=== PATIENT | male | born 1950 | race African-American/Black ===

== ENCOUNTER 2020-05-20 06:35 | Day surgery (SDC) | payer MEDICARE, OTHER ==
--- NOTE | 2020-05-16 14:33 | Opthalmology H&P ---
Ophthalmology H&P H&P Chief Complaint: decreased vision in left eye HPI Vision Affects Ability to: read, manage personal affairs HPI Narrative Blurry vision Exam Visual Acuity: OD 20/100 OS 20/160 Tension: OD 15 OS 17 Eye Exam: normal OU: external exam, palpebral fissure-width, marginal reflex distance, levator function, corneas, anterior chambers, fundus exam; findings: lens - NS Cat. OU Assessment/Plan Treatment Plan: cataract extraction w/ lens implant Goals of Treatment: improvement of vision, enhance quality of life Attestation Attestation The risks and benefits of the surgery as well as alternative procedures were explained to the patient in detail. Edgard Boston MD May 16, 2020 14:33
--- NOTE | 2020-05-16 14:35 | Pre-Procedure Note/Attestation ---
Pre-Procedure Note/Attestation Complete Prior to Procedure Planned Procedure: left Procedure Narrative: Cataract extraction with IOL implant left eye Indications for Procedure Pre-Operative Diagnosis: Nuclear sclerotic cataract left eye Attestation I attest that I discussed the nature of the procedure; its benefits; risks and complications; and alternatives (and the risks and benefits of such alternatives ), prior to the procedure, with the patient (or the patient's legal high school admissions representative). I attest that, if there was a reasonable possibility of needing a blood transfusion, the patient (or the patient's legal high school admissions representative) was given the [facility] standardized written summary, pursuant to the Vasiliy Janeth Blood Safety Act ([place] Health and Safety Code # 1645, as amended). I attest that I re-evaluated the patient just prior to the surgery and that there has been no change in the patient's H&P, except as documented below: Edgard Boston MD May 16, 2020 14:35
[~2020-05-20] VITALS: Ht 175.3 cm; Wt 59.0 kg
[2020-05-20] VITALS (9 sets, daily range): BP systolic 133–143; BP diastolic 80–91
[~2020-05-20 06:35] MED LIST: ALBUTEROL SULF8.5 G1 INH; CYCLOBENZAPRINE10 MG ORAL; NAPROXEN25 G1 MC; NKM; RANITIDINE HCL150 MG ORAL; asmanex INH
[2020-05-20] MEDS ORDERED: Maxitrol Opth Oint 3.5gm ONE (07:00)
[2020-05-20] MEDS ORDERED: prednisoLONE acetate 1% Opth Susp 1ml ONE (07:00)
[2020-05-20] MEDS ORDERED: Tetracaine 0.5% Opth 4ml Soln LEFT EYE ONE (07:00)
[2020-05-20] MEDS ORDERED: Akten 3.5% 1ml Btl LEFT EYE ONE (07:00)
[2020-05-20] MEDS ORDERED: Proparacaine 0.5% Opth Soln 15ml LEFT EYE ONE (07:00)
[2020-05-20] MEDS ORDERED: Pilocarpine 1% Opth 15ml Soln ONE (07:00)
[2020-05-20] MEDS ORDERED: Diclofenac Sod 0.1% Op Soln LEFT EYE SCH (07:00)
[2020-05-20] MEDS: Tropicamide 1% Opth 15ml Soln LEFT EYE SCH ×3 (07:04→07:25)
[2020-05-20] MEDS: Phenylephrine 10% Opth Soln 5ml LEFT EYE SCH ×3 (07:04→07:25)
[2020-05-20] MEDS: Tobramycin Op Soln 0.3% 5ml LEFT EYE SCH ×3 (07:04→07:25)
[2020-05-20] MEDS: Cyclopentolate 1% Opth Sol 2ml LEFT EYE SCH ×3 (07:04→07:25)
[2020-05-20] MEDS ORDERED: Povidone-Iodine 5% opth solution ONE (07:17)
[2020-05-20] MEDS ORDERED: EPINEPHrine 1mg/1ml Amp ONE (07:17)
[2020-05-20] MEDS ORDERED: BSS 15ml BTL ONE (07:17)
[2020-05-20] MEDS ORDERED: BSS 500ml btl ONE (07:17)
[2020-05-20] MEDS ORDERED: Sodium Hyaluronate 10 mg/ml 0.85ml ONE (07:17)
[2020-05-20] MEDS ORDERED: LR 1000ml 1,000 ML IVLG SCH (08:23)
--- NOTE | 2020-05-20 08:23 | Anethesia Preoperative Eval ---
Anesthesia Pre-op PMH/ROS General Date of Evaluation: May 20, 2020 Time of Evaluation: 08:18 Anesthesiologist: Kathleen ASA Score: ASA 2 Mallampati Score Class I : Soft palate, uvula, fauces, pillars visible Class II: Soft palate, uvula, fauces visible Class III: Soft palate, base of uvula visible Class IV: Only hard plate visible Mallampati Classification: Class II Surgeon: Ludy Diagnosis: L eye cataract Surgical Procedure: Cataract extraction Anesthesia History: none Social History: drug use - h/o Family History: no anesthesia problems Allergies: Coded Allergies: No Known Allergies (Unverified , 07/30/16) Medications: see eMAR Patient NPO?: Yes Past Medical History Cardiovascular: Reports: HTN - Borderline; Denies: CAD, [place], valve dz, arrhythmia, other Pulmonary: Reports: asthma - mild on inhalers; Denies: COPD, HYUN, other Gastrointestinal/Genitourinary: Reports: GERD; Denies: CRI, ESRD, other Neurologic/Psychiatric: Denies: dementia, CVA, depression/anxiety, TIA, other Endocrine: Denies: DM, hypothyroidism, steroids, other HEENT: Reports: cataract (L), cataract (R); Denies: glaucoma, [place] (L), [place] (R), other Hematology/Immune: Denies: anemia, DVT, bleeding disorder, other Musculoskeletal/Integumentary: Reports: OA; Denies: RA, DJD, DDD, edema, other Other: other - malnourished PMH Narrative: as above PSxH Narrative: Splenectomy Anesthesia Pre-op Phys. Exam Physician Exam Last Vital Signs Date Time Temp Pulse Resp B/P (MAP) Pulse Ox O2 Delivery O2 Flow Rate FiO2 05/20/20 07:23 Room Air 05/20/20 07:12 97.5 84 18 133/85 95 Constitutional: NAD Neurologic: CN 2-12 intact Cardiovascular: RRR, no M/R/G Respiratory: CTA Gastrointestinal: S/NT/ND Airway Exam Mallampati Score: Class II MO: limited Neck: stiff ROM: limited Teeth: missing Dentures: no upper, no lower Anesthesia Pre-op A/P Labs see chart Studies Pre-op Studies: EKG - SR Risk Assessment & Plan Assessment: ASA 2 Plan: MAC Status Change Before Surgery: No Pre-Antibiotics Drug: none Jose Wang MD May 20, 2020 08:23
[2020-05-20] MEDS ORDERED: fentaNYL 100 mcg/2 mL IV PRN (08:30)
[2020-05-20] MEDS ORDERED: fentaNYL 100 mcg/2 mL IV ONE (09:00)
[2020-05-20] MEDS ORDERED: LR 1000ml ONE (09:00)
[2020-05-20] MEDS ORDERED: NS Irrig 1000ml ONE (09:00)
[2020-05-20] MEDS ORDERED: Sterile Water Irrig 1000ml IRRIG ONE (09:00)
--- NOTE | 2020-05-20 09:45 | Immediate Post-Op Evaluation ---
Immediate Post-Op Evalulation Immediate Post-Op Evalulation Procedure: L eye cataract extraction with IOL Date of Evaluation: May 20, 2020 Time of Evaluation: 09:44 IV Fluids: 600 Blood Products: none Estimated Blood Loss: none Urinary Output: none Blood Pressure Systolic: 132 Blood Pressure Diastolic: 84 Pulse Rate: 62 Respiratory Rate: 18 O2 Sat by Pulse Oximetry: 99 Temperature (Fahrenheit): 97.8 Pain Score (1-10): 1 Nausea: No Vomiting: No Complications none Patient Status: awake, patent, none Hydration Status: adequate Jose Wang MD May 20, 2020 09:45
--- NOTE | 2020-05-20 09:51 | 48 Hour Post Anesthesia Eval ---
Post Anesthesia Evaluation Procedure: L eye cataract extraction with IOL Date of Evaluation: May 20, 2020 Time of Evaluation: 09:50 Blood Pressure Systolic: 142 0: 77 Pulse Rate: 68 Respiratory Rate: 16 Temperature (Fahrenheit): 97.8 O2 Sat by Pulse Oximetry: 99 Airway: patent Nausea: No Vomiting: No Pain Intensity: 1 Hydration Status: adequate Cardiopulmonary Status: stable Mental Status/LOC: patient returned to baseline Follow-up Care/Observations: n/a Post-Anesthesia Complications: none Follow-up care needed: ready to discharge Jose Wang MD May 20, 2020 09:51
--- NOTE | 2020-05-20 13:14 | Brief Operative Note ---
Immediate Post Operative Note Operative Note Chief Complaint: Blurry vision Pre-op Diagnosis: Nuclear sclerotic cataract left eye Procedure: Cataract extraction with IOL implant left eye Post-op Diagnosis: Pseudophakia OS Findings: consistent w/pre-op dx studies Surgeon: Edgard Boston MD Anesthesiologist: Jose Wang MD Anesthesia: MAC Specimen: none Complications: none Condition: stable Fluids: LR Estimated Blood Loss: none Drains: none Implant(s) used?: Yes - IOL Edgard Boston MD May 20, 2020 13:14
--- NOTE | 2020-05-20 13:18 | Operative Note - PDOC ---
Operative Note Operative Note Date of Operation/Procedure: May 20, 2020 Chief Complaint: Blurry vision Pre-op Diagnosis: Nuclear sclerotic cataract left eye Procedure: Cataract extraction with IOL implant left eye Post-op Diagnosis: Pseudophakia OS Operative Findings: consistent w/pre-op dx studies Surgeon: Edgard Boston MD Anesthesiologist: Jose Wang MD Anesthesia: MAC Specimen: none Complications: none Condition: stable Fluids: LR Estimated Blood Loss: none Drains: none Implant(s) used?: Yes - IOL-OS Indications for Procedure Nuclear sclerotic cataract left eye Description of Procedure This patient has been complaining visually significant cataract in the left eye with the best corrected visual acuity of 20/160 under moderate glare conditions worse. The patient complains of difficulties with glare in performing activities of daily living and wants to manage personal affairs with comfort and accuracy and see well enough to move with safety at home and outdoors independently The risks, benefits and alternatives of the procedure were discussed with the patient in the office prior to scheduling surgery. All questions from the patient were answered after the surgical procedure was explained in detail. The risks of the procedure as explained to the patient include, but are not limited to, pain, infection, bleeding, loss of vision, retinal detachment, need for further surgery, loss of lens nucleus, double vision, etc. Alternative procedures were discussed which include, to do nothing or seek a second opinion. Informed consent for this procedure was obtained from the patient. The patient was referred to a primary care physician for a cardiopulmonary clearance prior to surgery, after proper evaluation was done patient was properly scheduled for outpatient surgery. The patient was brought to the operating room where the anesthesiologist established I.V. lines and cardiac monitoring leads. Mild intravenous sedation was administered. The patient was then prepared with a 5% solution of povidone -iodine to the conjunctival fornix and lashes, and a 5% solution of povidone- iodine to the lids and periorbital skin. The patient was then draped in the usual sterile fashion. A lid speculum was then placed in the operative eye. A keratome blade was then used to create a biplanar incision into the anterior chamber. Viscoelastics was then instilled into the anterior chamber. A capsulorrhexis was then fashioned with an utrata forceps. The lens nucleus was hydrodissected and hydrodelineated with a G 27 Cannula. Paracentesis incision was made at 3 o'clock with sharp blade. The phacoemulsification unit, after being properly adjusted and tested, was then used to emulsify the nucleus followed by aspiration and irrigation of residual cortical material. Healon was then instilled into the anterior chamber. The corneal wound was then enlarged to the size of the optic with the grant keratome blade. The intraocular lens was then inspected for right power and size and thought to be satisfactory. Then the lens was gently placed in the capsular bag. Positioning within the capsular bag was confirmed by direct visualization. Optic centration was accomplished with a Sinskey hook. Viscoelastics was removed from the anterior chamber using the irrigation and aspiration unit. The corneal wound was then tested for leaks and none were found. The lid speculum were then removed. Sponge and needle counts were correct. An eye patch and shield were placed over the operative eye. The patient was taken to the recovery room in stable condition. There were no complications. The patient tolerated the procedure well. The patient was then transferred to the ambulatory surgery unit in stable and satisfactory condition , was given detailed written instructions and asked to follow up in the office the next day. Edgard Boston MD May 20, 2020 13:18
== END 2020-05-20 11:15 | disposition home or self-care (01) ==
LOC: SUR 06:35
DX: H25.12 Age-related nuclear cataract, left eye (principal); I10 Essential (primary) hypertension; K21.9 Gastro-esophageal reflux disease without esophagitis; M19.90 Unspecified osteoarthritis, unspecified site; Z90.81 Acquired absence of spleen; E46 Unspecified protein-calorie malnutrition; Z68.1 Body mass index [BMI] 19.9 or less, adult
CPT/HCPCS: 66984; 94003; J0171; J1100; J2704; J3010; J3370; J7120; V2632; 94150

== ENCOUNTER 2020-05-20 07:00 | Day surgery (SDC) | payer MEDICARE, OTHER ==
[2016-08-01 12:00] VITALS: BP 108/58
--- NOTE | 2020-03-26 09:30 | Opthalmology H&P ---
Ophthalmology H&P H&P Chief Complaint: decreased vision in left eye HPI Vision Affects Ability to: read, manage personal affairs HPI Narrative Blurry Vision Exam Visual Acuity: OD 20/100 OS 20/160 Eye Exam: normal OU: external exam, palpebral fissure-width, marginal reflex distance, levator function, corneas, anterior chambers, fundus exam; findings: lens - NS Cataracts OU Assessment/Plan Treatment Plan: cataract extraction w/ lens implant Goals of Treatment: improvement of vision, enhance quality of life Attestation Attestation The risks and benefits of the surgery as well as alternative procedures were explained to the patient in detail. Edgard Boston MD March 26, 2020 09:30
--- NOTE | 2020-03-26 09:31 | Pre-Procedure Note/Attestation ---
Pre-Procedure Note/Attestation Complete Prior to Procedure Planned Procedure: left Procedure Narrative: Cataract Extraction With IOL Implant Left Eye Indications for Procedure Pre-Operative Diagnosis: Nuclear sclerotic cataract left eye Attestation I attest that I discussed the nature of the procedure; its benefits; risks and complications; and alternatives (and the risks and benefits of such alternatives ), prior to the procedure, with the patient (or the patient's legal senior sales representative). I attest that, if there was a reasonable possibility of needing a blood transfusion, the patient (or the patient's legal senior sales representative) was given the [facility] standardized written summary, pursuant to the Vasiliy Janeth Blood Safety Act ([place] Health and Safety Code # 1645, as amended). I attest that I re-evaluated the patient just prior to the surgery and that there has been no change in the patient's H&P, except as documented below: Edgard Boston MD March 26, 2020 09:31
[2020-03-28 10:16] LABS: BASOPHILS % (AUTO) 2.7 % (0.0-2.0); EOSINOPHILS % (AUTO) 1.5 % (0.0-3.0); HEMATOCRIT 47.9 % (42.0-52.0); HEMOGLOBIN 16.5 G/DL (14.2-18.0); MEAN CORPUSCULAR VOLUME 88 FL (80-99); MONOCYTES % (AUTO) 9.5 % (1.0-10.0); NEUTROPHILS % (AUTO) 47.4 % (45.0-75.0); PLATELET COUNT 297 K/UL (150-450); RED BLOOD COUNT 5.46 M/UL (4.70-6.10); RED CELL DISTRIBUTION WIDTH 12.4 % (11.6-14.8); WHITE BLOOD COUNT 5.6 K/UL (4.8-10.8)
[2020-03-28 10:25] LABS: ANION GAP 5 mmol/L (5-15); BLOOD UREA NITROGEN 13 mg/dL (7-18); CARBON DIOXIDE 33 MMOL/L (21-32); CHLORIDE 109 MMOL/L (98-107); CREATININE 1.3 MG/DL (0.55-1.30); POTASSIUM 4.3 MMOL/L (3.5-5.1); SODIUM 147 MMOL/L (136-145)
[2020-03-28 10:55] LABS: INR 0.9 (0.9-1.1)
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
--- NOTE | 2020-04-11 13:59 | Pre-Procedure Note/Attestation ---
Pre-Procedure Note/Attestation Complete Prior to Procedure Planned Procedure: left Procedure Narrative: Cataract extraction with intraocular lens implant left eye Indications for Procedure Pre-Operative Diagnosis: Nuclear sclerotic cataract left eye Attestation I attest that I discussed the nature of the procedure; its benefits; risks and complications; and alternatives (and the risks and benefits of such alternatives ), prior to the procedure, with the patient (or the patient's legal compliance representative). I attest that, if there was a reasonable possibility of needing a blood transfusion, the patient (or the patient's legal compliance representative) was given the [facility] standardized written summary, pursuant to the Vasiliy [place] Blood Safety Act ([place] Health and Safety Code # 1645, as amended). I attest that I re-evaluated the patient just prior to the surgery and that there has been no change in the patient's H&P, except as documented below: Edgard Boston MD April 11, 2020 13:59
--- NOTE | 2020-05-02 14:15 | Opthalmology H&P ---
Ophthalmology H&P H&P Chief Complaint: decreased vision in left eye HPI Vision Affects Ability to: read, manage personal affairs HPI Narrative Blurry vision Exam Visual Acuity: OD 20/125 OS 20/160 Tension: OD 15 OS 17 Eye Exam: normal OU: external exam, palpebral fissure-width, marginal reflex distance, levator function, corneas, anterior chambers, fundus exam; findings: lens - NS Cat OU Assessment/Plan Treatment Plan: cataract extraction w/ lens implant Goals of Treatment: improvement of vision, enhance quality of life Attestation Attestation The risks and benefits of the surgery as well as alternative procedures were explained to the patient in detail. Edgard Boston MD May 02, 2020 14:15
--- NOTE | 2020-05-02 14:17 | Pre-Procedure Note/Attestation ---
Pre-Procedure Note/Attestation Complete Prior to Procedure Planned Procedure: left Procedure Narrative: Cataract extraction with IOL implant left eye Indications for Procedure Pre-Operative Diagnosis: Nuclear sclerotic cataract left eye Attestation I attest that I discussed the nature of the procedure; its benefits; risks and complications; and alternatives (and the risks and benefits of such alternatives ), prior to the procedure, with the patient (or the patient's legal mortician supplies sales representative). I attest that, if there was a reasonable possibility of needing a blood transfusion, the patient (or the patient's legal mortician supplies sales representative) was given the [facility] standardized written summary, pursuant to the Vasiliy Janeth Blood Safety Act ([place] Health and Safety Code # 1645, as amended). I attest that I re-evaluated the patient just prior to the surgery and that there has been no change in the patient's H&P, except as documented below: Edgard Bosotn MD May 02, 2020 14:17
[~2020-05-20] VITALS: Ht 175.3 cm; Wt 59.0 kg
[~2020-05-20 07:00] MED LIST changes: +Acetaminophen 500mg (ES) tab ORAL ONE; +Akten 3.5% 1ml Btl LEFT EYE ONE; +BSS 15ml BTL ONE; +BSS 500ml btl ONE; +Ciprofloxacin Opth Soln 5ml LEFT EYE SCH; +Cyclopentolate 1% Opth Sol 2ml LEFT EYE SCH; +Diclofenac Sod 0.1% Op Soln LEFT EYE SCH; +EPINEPHrine 1mg/1ml Amp ONE; +Phenylephrine 10% Opth Soln 5ml LEFT EYE SCH; +Povidone-Iodine 5% opth solution ONE; +Proparacaine 0.5% Opth Soln 15ml LEFT EYE ONE; +Sodium Hyaluronate 10 mg/ml 0.85ml ONE; +Tetracaine 0.5% Opth 4ml Soln LEFT EYE ONE; +Tobramycin Op Soln 0.3% 5ml LEFT EYE SCH; +Tropicamide 1% Opth 15ml Soln LEFT EYE SCH
== END 2020-05-20 10:00 | disposition home or self-care (01) ==
LOC: CANPRESDC → SUR 07:00 → CAR 10:00 → SUR 10:00 → EDSTATUS 10:15
DX: H25.12 Age-related nuclear cataract, left eye (principal); I10 Essential (primary) hypertension; K21.9 Gastro-esophageal reflux disease without esophagitis; M19.90 Unspecified osteoarthritis, unspecified site; Z90.81 Acquired absence of spleen; E46 Unspecified protein-calorie malnutrition; Z68.1 Body mass index [BMI] 19.9 or less, adult
CPT/HCPCS: 36415; 80048; 85025; 85610; 85730; 93005